=== PATIENT | female | born 1990 | race Two or more races ===

== ENCOUNTER → 2020-03-16 | Emergency (ER) | payer OTHER ==
[~2020-03-16] VITALS: Ht 160 cm; Wt 70.3 kg
[~2020-03-16] MED LIST: MORPHINE SULFATE 4 MG/ML SYR/VIAL IV ONE; ONDANSETRON HCL 4 MG/2 ML VIAL IV ONE
[2020-03-16 18:39] VITALS: BP 126/92
== END | disposition home or self-care (01) ==
LOC: ER 14:07 → EDBD 14:07
DX: S32.401A Unspecified fracture of right acetabulum, initial encounter for closed fracture (principal); Z88.6 Allergy status to analgesic agent; W18.09XA Striking against other object with subsequent fall, initial encounter; Y93.89 Activity, other specified; Y92.89 Other specified places as the place of occurrence of the external cause; Y99.8 Other external cause status
CPT/HCPCS: 71250; 73110; 74176; 96374; 96375; 99285; J2270; J2405